=== PATIENT | male | born 1960 | race Caucasian/White ===

== ENCOUNTER 2017-02-17 13:14 | Outpatient (CLI) | payer OTHER ==
--- NOTE | 2017-02-17 15:08 | DIAGNOSTIC IMAGING REPORT ---
PROCEDURE: ABDOMEN/PELVIS WITH CONTRAST CLINICAL INDICATION: ABDOMINAL PAIN; FEVER TECHNIQUE: 145 ml of Isovue 300 were injected intravenously and axial images were obtained of the abdomen and pelvis with sagittal and coronal reformations. COMPARISON: 11/08/2010 FINDINGS: ABDOMEN: Distal small bowel loops demonstrate mild dilatation, circumferential wall thickening, and mild hyperemia. There is hyperemia, decompression, and mural edema involving the distal and terminal ileum. There is mucosal hyperemia, wall thickening/edema throughout the entire colon and rectum. Mild prominence of pericolonic vasculature in the descending and sigmoid colon. No diverticula. No evidence of perforation, adjacent fluid, or focal pelvic fluid collection. Proximal bowel loops and stomach appear normal. Mild to moderate hepatic hypodensity suggestive of steatosis. Decompressed gallbladder. Left upper pole cortical renal cyst. Clear lung bases. Normal sized heart. No hiatal hernia. The adrenal glands, right kidney, pancreas and spleen are normal. The abdominal aorta is normal in its course and caliber. Minimal atherosclerosis. There are no suspicious calcifications, retroperitoneal adenopathy or masses. PELVIS: The appendix is surgically absent. The prostate gland, seminal vesicles, urinary bladder, and pelvic vessels are normal. No adenopathy, free fluid, or pelvic mass. Intact osseous structures. IMPRESSION: 1. Findings of mild to moderate enterocolitis with inflammation involving the entire colon. Findings are likely infectious, however inflammatory possibilities are also raised (Crohn disease or medication-induced colitis). No evidence of acute complication. 2. Mild to moderate hepatic steatosis. This is fairly similar compared to the prior study. 3. Surgically absent appendix. 4. Findings called to Dr. Francis. All CT scans at this facility use dose modulation, iterative reconstruction, and/or weight-based dosing when appropriate to reduce radiation dose to as low as reasonably achievable.
== END 2017-02-17 23:00 | disposition home or self-care (01) ==
LOC: LAB SRH 13:14
DX: K52.89 Other specified noninfective gastroenteritis and colitis (principal); K76.0 Fatty (change of) liver, not elsewhere classified
CPT/HCPCS: 90074; 90100; 92235; 95059